=== PATIENT | female | born 1990 | race Two or more races ===

== ENCOUNTER 2021-05-19 15:00 | Emergency (ER) | payer BC ==
[2021-05-19] MEDS ORDERED: Ondansetron 4 MG/2 ML SDV IVPUSH ONE (16:37)
[2021-05-19] MEDS ORDERED: Sodium Chloride 0.9% 10 ML Syringe FLUSH PRN (16:37)
[2021-05-19] MEDS ORDERED: Sodium Chloride 0.9% 1,000 ML IV ONE (16:37)
[2021-05-19] MEDS ORDERED: Ketorolac 30 MG/ML SDV IVPUSH ONE (16:37)
--- NOTE | 2021-05-19 16:45 | EDM.PDOC ---
ED HPI GENERAL MEDICAL PROBLEM - General Chief Complaint: Abdominal Pain Stated Complaint: LOWER BACK AND ABDOMINSL PAIN Time Seen by Provider: 05/19/21 16:30 Source of Information: Reports: Patient History Limitations: Reports: No Limitations - History of Present Illness INITIAL COMMENTS - FREE TEXT/NARRATIVE: 30-year-old female presents the emergency department today with complaints of right flank pain and hematuria. Patient states she had subjective fever and chills 5 days ago. She states that she also had voided 2 days ago and when she wiped noted blood in her urine and on the toilet paper. She states she is not currently menstruating. She states that pain is primarily located in her right flank area and wraps around and radiates down into her right groin. She states she has had nausea associated with the pain that is rated at a 7 out of 10. She describes this pain as a stabbing type of pain. She denies any history of kidney stones in the past and states she is otherwise healthy. Right Flank Pain Score (Numeric/FACES): 6 - Related Data Allergies Allergy/AdvReac Type Severity Reaction Status Date / Time No Known Allergies Allergy Verified 05/19/21 16:12 Home Meds: Home Meds Sulfamethoxazole/Trimethoprim [Bactrim Ds Tablet] 1 each PO BID #19 tablet 05/19/21 [Rx] Past Medical History - Past Health History Medical/Surgical History: Denies Medical/Surgical History Social & Family History - Tobacco Use Tobacco Use Status *Q: Light Tobacco User Years of Tobacco use: 1 Packs/Tins Daily: 1 - Caffeine Use Caffeine Use: Reports: Coffee - Recreational Drug Use Recreational Drug Use: Yes Recreational Drug Type: Reports: Marijuana/Hashish ED ROS GENERAL - Review of Systems Review Of Systems: Comprehensive ROS is negative, except as noted in HPI. ED EXAM, RENAL/ - Physical Exam Exam: See Below Exam Limited By: No Limitations General Appearance: Alert, WD/WN, No Apparent Distress Ears: Normal External Exam, Hearing Grossly Normal Nose: Normal Inspection Throat/Mouth: Normal Inspection, Normal Lips, Normal Voice, No Airway Compromise Head: Atraumatic Neck: Normal Inspection, Supple Respiratory/Chest: No Respiratory Distress, Lungs Clear, Normal Breath Sounds, No Accessory Muscle Use, Chest Non-Tender Cardiovascular: Normal Peripheral Pulses, Regular Rate, Rhythm, No Edema, No Murmur GI/Abdominal: Normal Bowel Sounds, Soft, Non-Tender, No Distention (Female) Exam: Deferred Rectal (Female) Exam: Deferred Back Exam: Normal Inspection, Full Range of Motion. No: CVA Tenderness (L), CVA Tenderness (R) Extremities: Normal Inspection Neurological: Alert, Oriented, Normal Cognition Psychiatric: Normal Affect, Normal Mood Skin Exam: Warm, Dry, Intact, Normal Color, No Rash Lymphatic: No Adenopathy Course - Vital Signs Text/Narrative:: As stated above, patient presents with right flank pain and hematuria and subjective fever that started 5 days ago. Physical exam is essentially unremarkable. Patient does not have any costovertebral angle tenderness on either side. She is afebrile and hemodynamically stable. Will obtain a urinalysis with micro and culture if indicated, urine test, CBC, CMP, C-reactive protein. We will obtain CT of the abdomen and pelvis without contrast if urine test is negative. We will also give her a liter of normal saline as well as Toradol and Zofran. Last Recorded V/S: Last Vital Signs Temp 98.0 F 05/19/21 16:10 Pulse 94 05/19/21 16:10 Resp 18 05/19/21 16:10 BP 116/79 05/19/21 16:10 Pulse Ox 98 05/19/21 16:10 - Orders/Labs/Meds Orders: Active Orders 24 hr Category Date Time Status Abdomen Pelvis wo Cont [CT] Stat Exams 05/19/21 17:36 Taken CULTURE URINE [MREF] Stat Lab 05/19/21 16:16 Received Sodium Chloride 0.9% [Saline Flush] Med 05/19/21 16:37 Active 10 ml FLUSH ASDIRECTED PRN Saline Lock Insert [OM.PC] Stat Oth 05/19/21 16:37 Ordered Medication Orders Sodium Chloride (Sodium Chloride 0.9% 10 Ml Syringe) 10 ml FLUSH ASDIRECTED PRN PRN Reason: Keep Vein Open Last Admin: 05/19/21 17:25 Dose: 10 ml Documented by: HUNTER Labs: Laboratory Tests 05/19/21 05/19/21 05/19/21 Range/Units 16:16 16:16 17:20 WBC 11.72 H (3.98-10.04) K/mm3 RBC 4.20 (3.98-5.22) M/mm3 Hgb 12.3 (11.2-15.7) gm/dl Hct 37.1 (34.1-44.9) % MCV 88.3 (79.4-94.8) fl MCH 29.3 (25.6-32.2) pg MCHC 33.2 (32.2-35.5) g/dl RDW Std Deviation 41.3 (36.4-46.3) fL Plt Count 317 (182-369) K/mm3 MPV 10.5 (9.4-12.3) fl Neut % (Auto) 66.2 (34.0-71.1) % Lymph % (Auto) 23.7 (19.3-51.7) % [place] % (Auto) 8.7 (4.7-12.5) % Eos % (Auto) 0.8 (0.7-5.8) Baso % (Auto) 0.3 (0.1-1.2) % Neut # (Auto) 7.76 H (1.56-6.13) K/mm3 Lymph # (Auto) 2.78 (1.18-3.74) K/mm3 [place] # (Auto) 1.02 H (0.24-0.36) K/mm3 Eos # (Auto) 0.09 (0.04-0.36) K/mm3 Baso # (Auto) 0.04 (0.01-0.08) K/mm3 Manual Slide Review Normal smear Sodium (136-145) mEq/L Potassium (3.5-5.1) mEq/L Chloride (98-107) mEq/L Carbon Dioxide (21-32) mEq/L Anion Gap (5-15) BUN (7-18) mg/dL Creatinine (0.55-1.02) mg/dL Est Cr Clr Drug Dosing mL/min Estimated GFR (MDRD) (>60) mL/min BUN/Creatinine Ratio (14-18) Glucose (70-99) mg/dL Calcium (8.5-10.1) mg/dL Magnesium (1.8-2.4) mg/dL Total Bilirubin (0.2-1.0) mg/dL AST (15-37) U/L ALT (14-59) U/L Alkaline Phosphatase (46-116) U/L C-Reactive Protein (<1.0) mg/dL Total Protein (6.4-8.2) g/dl Albumin (3.4-5.0) g/dl Globulin gm/dL Albumin/Globulin Ratio (1-2) Urine Color Yellow (Yellow) Urine Appearance Slt cloudy H (Clear) Urine pH 6.5 (5.0-8.0) Ur Specific [employer] 1.020 (1.005-1.030) Urine Protein Negative (Negative) Urine Glucose (UA) Negative (Negative) Urine Ketones Trace H (Negative) Urine Occult Blood Trace-intact H (Negative) Urine Nitrite Positive H (Negative) Urine Bilirubin Negative (Negative) Urine Urobilinogen 0.2 (0.2-1.0) Ur Leukocyte Esterase Trace H (Negative) Urine RBC 0-5 (0-5) /hpf Urine WBC 5-10 H (0-5) /hpf Ur Squamous Epith Cells 0-5 (0-5) /hpf Urine Bacteria Many H (FEW) /hpf Urine Mucus Moderate H (FEW) /hpf Urine HCG, Qual Negative (NEGATIVE) 05/19/21 Range/Units 17:20 WBC (3.98-10.04) K/mm3 RBC (3.98-5.22) M/mm3 Hgb (11.2-15.7) gm/dl Hct (34.1-44.9) % MCV (79.4-94.8) fl MCH (25.6-32.2) pg MCHC (32.2-35.5) g/dl RDW Std Deviation (36.4-46.3) fL Plt Count (182-369) K/mm3 MPV (9.4-12.3) fl Neut % (Auto) (34.0-71.1) % Lymph % (Auto) (19.3-51.7) % [place] % (Auto) (4.7-12.5) % Eos % (Auto) (0.7-5.8) Baso % (Auto) (0.1-1.2) % Neut # (Auto) (1.56-6.13) K/mm3 Lymph # (Auto) (1.18-3.74) K/mm3 [place] # (Auto) (0.24-0.36) K/mm3 Eos # (Auto) (0.04-0.36) K/mm3 Baso # (Auto) (0.01-0.08) K/mm3 Manual Slide Review Sodium 136 (136-145) mEq/L Potassium 4.2 (3.5-5.1) mEq/L Chloride 100 (98-107) mEq/L Carbon Dioxide 25 (21-32) mEq/L Anion Gap 15.2 H (5-15) BUN 5 L (7-18) mg/dL Creatinine 0.7 (0.55-1.02) mg/dL Est Cr Clr Drug Dosing 86.61 mL/min Estimated GFR (MDRD) > 60 (>60) mL/min BUN/Creatinine Ratio 7.1 L (14-18) Glucose 84 (70-99) mg/dL Calcium 8.7 (8.5-10.1) mg/dL Magnesium 2.1 (1.8-2.4) mg/dL Total Bilirubin 0.3 (0.2-1.0) mg/dL AST 22 (15-37) U/L ALT 28 (14-59) U/L Alkaline Phosphatase 65 (46-116) U/L C-Reactive Protein 10.2 H* (<1.0) mg/dL Total Protein 8.2 (6.4-8.2) g/dl Albumin 3.5 (3.4-5.0) g/dl Globulin 4.7 gm/dL Albumin/Globulin Ratio 0.7 L (1-2) Urine Color (Yellow) Urine Appearance (Clear) Urine pH (5.0-8.0) Ur Specific [employer] (1.005-1.030) Urine Protein (Negative) Urine Glucose (UA) (Negative) Urine Ketones (Negative) Urine Occult Blood (Negative) Urine Nitrite (Negative) Urine Bilirubin (Negative) Urine Urobilinogen (0.2-1.0) Ur Leukocyte Esterase (Negative) Urine RBC (0-5) /hpf Urine WBC (0-5) /hpf Ur Squamous Epith Cells (0-5) /hpf Urine Bacteria (FEW) /hpf Urine Mucus (FEW) /hpf Urine HCG, Qual (NEGATIVE) Meds: Medications Generic Name Dose Route Start Last Admin Trade Name Freq PRN Reason Stop Dose Admin Sodium Chloride 10 ml 05/19/21 16:37 05/19/21 17:25 Sodium Chloride 0.9% 10 Ml Syringe FLUSH 10 ml ASDIRECTED PRN Administration Keep Vein Open Discontinued Medications Generic Name Dose Route Start Last Admin Trade Name Angie PRN Reason Stop Dose Admin Sodium Chloride 1,000 mls @ 999 mls/hr 05/19/21 16:37 05/19/21 17:25 Normal Saline IV 05/19/21 17:37 999 mls/hr ONETIME ONE Administration Ketorolac Tromethamine 30 mg 05/19/21 16:37 05/19/21 17:23 Ketorolac 30 Mg/Ml Sdv IVPUSH 05/19/21 16:38 30 mg ONETIME ONE Administration Ondansetron HCl 4 mg 05/19/21 16:37 05/19/21 17:21 Ondansetron 4 Mg/2 Ml Sdv IVPUSH 05/19/21 16:38 4 mg ONETIME ONE Administration Trimethoprim/Sulfamethoxazole 1 tab 05/19/21 20:15 Sulfamethoxazole/Trimethoprim 800-160 Mg Tab PO 05/19/21 20:16 ONETIME ONE - Re-Assessments/Exams Free Text/Narrative Re-Assessment/Exam: 05/19/21 19:52 Hematology reveals a WBC of 11.72, hemoglobin 12.3, hematocrit 37.1, platelet count 317 Chemistry reveals a sodium of 136, potassium 4.2, anion gap 15.2, BUN 5, creatinine 0.7, magnesium 2.1, C-reactive protein 10.2 Urinalysis reveals trace of ketones, trace of intact occult blood, positive nitrite, trace of leukocyte E[place]ace, urine WBC 5-10, many bacteria moderate mucus, urine is negative 05/19/21 20:18 [facility] radiologist impression: 1. Suggestion of some inflammation of the right kidney with very minimal perinephric fat stranding and some minimal collecting system fullness. No definite calculi. Correlate for any evidence of underlying urinary tract infection or recently passed stone. 2. Bladder wall is mildly thickened. Correlate to exclude cystitis. 3. Multiple nonspecific fluid-filled loops of small bowel with no evidence for obstruction. Patient will be given a tab of Bactrim DS to treat for pyelonephritis. She will then be discharged home in a prescription for the remaining doses of the Bactrim will be sent to her pharmacy. Departure - Departure Time of Disposition: 20:19 Disposition: Home, Self-Care 01 Condition: Good Clinical Impression: Pyelonephritis - Discharge Information Prescriptions: Sulfamethoxazole/Trimethoprim [Bactrim Ds Tablet] 1 each PO BID #19 tablet Referrals: PCP,None [Primary Care Provider] - Forms: ED Department Discharge Additional Instructions: You were seen in the emergency department with right flank pain and fever a few days ago also blood noted in the urine. Lab studies were completed which did show a slight elevation in white blood cell count. Urinalysis did show that he had a urinary tract infection. CT scan was completed which did show some inflammation of the right kidney which is consistent with kidney infection. Treatment for this is antibiotics. While you are in the emergency department you were given your first dose of antibiotic. Prescription has been sent to your pharmacy [facility] on [address] [place] the remaining doses of the antibiotic. You will need to take 1 tab twice daily until gone. Once you have completed your course of antibiotics it is a good idea to have your urine rechecked to be sure the infection has cleared up. May take Tylenol or ibuprofen for discomfort. Sepsis Event Note (ED) - Focused Exam Vital Signs: Vital Signs Temp Pulse Resp BP Pulse Ox 05/19/21 16:10 98.0 F 94 18 116/79 98 - My Orders Last 24 Hours: My Active Orders 05/19/21 16:37 Sodium Chloride 0.9% [Saline Flush] 10 ml FLUSH ASDIRECTED PRN Saline Lock Insert [OM.PC] Stat 05/19/21 17:36 Abdomen Pelvis wo Cont [CT] Stat - Assessment/Plan Last 24 Hours: My Active Orders 05/19/21 16:37 Sodium Chloride 0.9% [Saline Flush] 10 ml FLUSH ASDIRECTED PRN Saline Lock Insert [OM.PC] Stat 05/19/21 17:36 Abdomen Pelvis wo Cont [CT] Stat
[2021-05-19] MEDS ORDERED: Sulfamethoxazole/Trimethoprim 800-160 MG Tab PO ONE (20:15)
--- NOTE | 2021-05-20 08:13 | CT ---
CT abdomen and pelvis Technique: Multiple axial sections were obtained from above the dome of the diaphragm inferiorly through the pubic symphysis. Intravenous and oral contrast were not utilized. Study has been performed as of ureteral stone protocol. Reconstructed coronal and sagittal images were obtained. Comparison: No prior abdominal imaging is available. Findings: Right kidney shows very slight surrounding inflammatory type change. Kidneys show no abnormal calcifications. No ureteral dilatation or ureteral stone is seen. No bladder calculi are noted. Right kidney findings could represent pyelonephritis or possibly represent a change from a recently passed right ureteral stone. Visualized lung bases show nothing acute. Noncontrast appearance of the liver shows no focal abnormality. Spleen size is normal. Adrenal glands show no nodule. Pancreas shows no abnormality. Gallbladder contains no calcified gallstones. Abdominal aorta shows no aneurysm. No retroperitoneal adenopathy or mesenteric abnormalities are seen. Appendix is seen which is normal in size. No pelvic mass or adenopathy is identified. Bone window settings were reviewed which show no acute osseous abnormality. Impression: 1. Slight inflammatory type change around the right kidney. Findings could represent pyelonephritis as well as representing residual change from recently passed right ureteral stone which is not visualized on current study. Please correlate. 2. No additional abnormality is appreciated on noncontrast CT study of the abdomen and pelvis. Diagnostic code #3 I agree with preliminary report from [facility], finalized on 05/19/21, 8:49 PM CDT, code 1
== END 2021-05-19 20:40 | disposition home or self-care (01) ==
LOC: JD.ED 15:00
DX: N12 Tubulo-interstitial nephritis, not specified as acute or chronic (principal); Z72.0 Tobacco use
CPT/HCPCS: 36415; 74176; 80053; 81001; 81025; 83735; 85025; 86140; 87086; 87088; 87186; 96374; 96375; 99284; A9270; J1885; J2405; J7030